=== PATIENT | male | born 2000 | race Caucasian/White ===

== ENCOUNTER 2024-03-01 01:58 | Emergency (ER) | payer OTHER, SELFPAY ==
[2024-03-01] VITALS (8 sets, daily range): BP systolic 134–140; BP diastolic 63–93; PULSE 57–121; RESP 11–25; TEMP 36.8–36.9; O2SAT 95–98; BMI 27.7
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
[2024-03-01] MEDS: OXYCODONE IR 5 MG TABLET PO (02:33)
[2024-03-01] MEDS: LIDOCAINE 1% 20 ML INJ (02:34)
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
[2024-03-01] MEDS: ONDANSETRON 4 MG/2 ML INJ IV (03:22)
== END 2024-03-01 03:55 | disposition home or self-care (01) ==
LOC: ED 03:44
PROVIDERS: Emergency Provider Emergency Medicine
DX: S52.502A Unspecified fracture of the lower end of left radius, initial encounter for closed fracture (principal); S82.51XA Displaced fracture of medial malleolus of right tibia, initial encounter for closed fracture; V89.2XXA Person injured in unspecified motor-vehicle accident, traffic, initial encounter
CPT/HCPCS: 29515; 64450; 73100; 73110; 73610; 96374; 99284; J2405